=== PATIENT | male | born 1985 | race African-American/Black ===

== ENCOUNTER 2018-03-23 19:43 | Emergency (ER) | payer SELFPAY ==
[~2018-03-23] VITALS: Ht 190.5 cm; Wt 143.7 kg
[~2018-03-23 19:43] MED LIST: IBUP800T19 PO; MUPI1OIN NS; ONDA4TAB10 SL; SULF1TAB24 PO
[2018-03-23 19:56] VITALS: BP 142/93
[2018-03-23] MEDS ORDERED: AMOX500C PO (20:36)
[2018-03-23] MEDS ORDERED: HYDR-971 PO (20:36)
--- NOTE | 2018-03-23 20:36 | PHYS DOC ---
Past History Past Medical History: No Pertinent History, Other Past Surgical History: No Surgical History, Other Smoking: Quit Less Than 1 Year Alcohol Use: Occasionally Drug Use: Marijuana Adult General Chief Complaint Chief Complaint: DENTAL PROBLEM HPI HPI Patient is a 32 year old male who presents with complaint of left-sided dental pain and jaw swelling. Patient states that his symptoms have been present over the past 24 hours. Patient states that he has an impacted wisdom tooth that has been causing trouble off and on. Patient states that he is setting up an appointment to have his wisdom teeth taken out, however he states that due to concern for active infection he came to the emergency department as they will not see him until any infections are resolved. Patient states he's had low- grade fever and took Tylenol prior to arrival. Patient denies any other symptoms currently. Review of Systems Review of Systems Constitutional: Fever[] Eyes: Denies change in visual acuity, redness, or eye pain [] HENT: Dental pain, left jaw swelling[] Respiratory: Denies cough or shortness of breath [] Cardiovascular: Denies chest pain or edema[] GI: Denies abdominal pain, nausea, vomiting, bloody stools or diarrhea [] : Denies dysuria or hematuria [] Musculoskeletal: Denies back pain or joint pain [] Integument: Denies rash or skin lesions [] Neurologic: Denies headache, focal weakness or sensory changes [] All other systems were reviewed and found to be within normal limits, except as documented in this note. Allergies Allergies Allergies Coded Allergies Type Severity Reaction Last Updated Verified No Known Drug Allergies 10/05/13 No Physical Exam Physical Exam Constitutional: Well developed, well nourished, appears in [id number] discomfort. [] HENT: Normocephalic, atraumatic, bilateral external ears normal, oropharynx moist, gingival swelling near site of tooth #17, direct tenderness to palpation , no fluctuance, no oral exudates, nose normal. [] Eyes: PERRLA, EOMI, conjunctiva normal, no discharge. [] Neck: Normal range of motion, no tenderness, supple, no stridor. [] Cardiovascular:Heart rate regular rhythm, no murmur [] Lungs & Thorax: Bilateral breath sounds clear to auscultation [] Abdomen: Bowel sounds normal, soft, no tenderness, no masses, no pulsatile masses. [] Skin: Warm, dry, no erythema, no rash. [] Back: No tenderness, no CVA tenderness. [] Extremities: No tenderness, no cyanosis, no clubbing, ROM intact, no edema. [] Neurologic: Alert and oriented X 3, normal motor function, normal sensory function, no focal deficits noted. [] Current Patient Data Vital Signs Vital Signs Date Time Temp Pulse Resp B/P (MAP) Pulse Ox O2 Delivery O2 Flow Rate FiO2 03/23/18 19:56 99.9 76 18 98 Room Air Lab Results None performed EKG EKG Not performed[] Radiology/Procedures Radiology/Procedures Not performed[] Course & Med Decision Making Course & Med Decision Making Pertinent Labs and Imaging studies reviewed. (See chart for details) Patient started on treatment with amoxicillin in the emergency department. Will continue on 10 day course of treatment. Advised follow-up with a dentist in the next 5-7 days for reevaluation and return to emergency department for any worsening symptoms. Patient was understanding and in agreement with treatment plan. Dragon Disclaimer Dragon Disclaimer This electronic medical record was generated, in whole or in part, using a voice recognition dictation system. Departure Departure: Impression: Primary Impression: Dental infection Disposition: HOME, SELF-CARE Condition: STABLE Referrals: CHAZ ECHEVERRIA MD (PCP) Patient Instructions: Dental Pain Additional Instructions: Follow-up with your dentist in the next 5 days for reevaluation. Return to the emergency department for any worsening symptoms. Scripts Hydrocodone Bit/Acetaminophen (NORCO 5-325 TABLET) 1 Each Tablet 1-2 TAB PO Q4-6HRS PRN for PAIN, #20 TAB Prov: MARIA DOLORES CHAVES MD 03/23/18 Amoxicillin (AMOXICILLIN) 500 Mg Capsule 2 CAP PO BID, #40 CAP Prov: MARIA DOLORES CHAVES MD 03/23/18 MARIA DOLORES CHAVES MD Mar 23, 2018 20:36
[2018-03-23] MEDS ORDERED: IBUPROFEN 600 MG TABLET. PO ONE (20:45)
[2018-03-23] MEDS ORDERED: AMOXICILLIN 250 MG CAPSULE PO ONE (20:45)
== END 2018-03-23 20:44 | disposition home or self-care (01) ==
LOC: ER 19:43
DX: K04.7 Periapical abscess without sinus (principal); Z87.891 Personal history of nicotine dependence
CPT/HCPCS: 99283

== ENCOUNTER 2019-01-20 07:05 | Emergency (ER) | payer SELFPAY ==
[~2019-01-20] VITALS: Ht 190.5 cm; Wt 140.7 kg
[~2019-01-20 07:05] MED LIST changes: +AMOX500C PO; +HYDR-3165 PO
[2019-01-20] MEDS ORDERED: AMOX500T PO (07:31)
[2019-01-20] MEDS ORDERED: MELO7.5T29 PO (07:31)
[2019-01-20] MEDS ORDERED: HYDR-3165 PO (07:31)
--- NOTE | 2019-01-20 07:31 | PHYS DOC ---
Past History Past Medical History: No Pertinent History Past Surgical History: No Surgical History, Other Smoking: Quit Less Than 1 Year Alcohol Use: Occasionally Drug Use: Marijuana Adult General Chief Complaint Chief Complaint: DENTAL PROBLEM HPI HPI Patient is a 33-year-old male presents with left-sided jaw pain and facial swelling that started this morning. Approximately a week ago he broke a tooth on the bottom left side. He is awaiting follow-up with his dentist next Thursday. Patient reports increased sensitivity to cold. The significant pain and swelling again just started this morning. Patient has been trying to keep the area clean. No difficulty swallowing. No fever. Some pain relief with Tylenol and Motrin. Pain is moderate in intensity[] Review of Systems Review of Systems Constitutional: Denies fever or chills [] Eyes: Denies change in visual acuity, redness, or eye pain [] HENT: Denies nasal congestion or sore throat [] Respiratory: Denies cough or shortness of breath [] Cardiovascular: No chest pain or palpitations[] GI: Denies abdominal pain, nausea, vomiting, bloody stools or diarrhea [] : Denies dysuria or hematuria [] Musculoskeletal: Denies back pain or joint pain [] Integument: Denies rash or skin lesions [] Neurologic: Denies headache, focal weakness or sensory changes [] Endocrine: Denies polyuria or polydipsia [] All other systems were reviewed and found to be within normal limits, except as documented in this note. Allergies Allergies Allergies Coded Allergies Type Severity Reaction Last Updated Verified No Known Drug Allergies 01/20/19 No Physical Exam Physical Exam Constitutional: Well developed, well nourished, no acute distress, non-toxic appearance. [] HENT: Normocephalic, atraumatic, bilateral external ears normal, oropharynx moist, no oral exudates, nose normal. Patient's tooth #20 is broken towards the posterior aspect. There is tenderness to percussion. There is some facial swelling. There is no drainable abscess appreciated. Some anterior chain cervical lymphadenopathy is present. No nuchal rigidity. [] Eyes: PERRLA, EOMI, conjunctiva normal, no discharge. [] Neck: Normal range of motion, no tenderness, supple, no stridor. [] Cardiovascular:Heart rate regular rhythm, no murmur [] Lungs & Thorax: Bilateral breath sounds clear to auscultation [] Abdomen: Not examined. [] Skin: Warm, dry, no erythema, no rash. [] Back: No tenderness, no CVA tenderness. [] Extremities: No tenderness, no cyanosis, no clubbing, ROM intact, no edema. [] Neurologic: Alert and oriented X 3, normal motor function, normal sensory function, no focal deficits noted. [] Psychologic: Affect normal, judgement normal, mood normal. [] Current Patient Data Vital Signs Vital Signs Date Time Temp Pulse Resp B/P (MAP) Pulse Ox O2 Delivery O2 Flow Rate FiO2 01/20/19 07:19 98.8 74 18 98 Room Air EKG EKG [] Radiology/Procedures Radiology/Procedures [] Course & Med Decision Making Course & Med Decision Making Pertinent Labs and Imaging studies reviewed. (See chart for details) Patient appears to have a dental infection is result of the broken tooth. There is no evidence of Jayy exam Gen. No evidence of airway compromise. Patient is nontoxic. Will start him on oral antibiotics and have him follow up with his dental appointment.[] Dragon Disclaimer Dragon Disclaimer This electronic medical record was generated, in whole or in part, using a voice recognition dictation system. Departure Departure: Impression: Primary Impression: Dental infection Disposition: HOME, SELF-CARE Condition: IMPROVED Referrals: CHAZ ECHEVERRIA MD (PCP) Follow-up in 2 days Patient Instructions: Dental Abscess Additional Instructions: Keep your dental appointment as scheduled. Take the medication as prescribed. Return to the ER if worsening pain, swelling, fever of more than 101, or any other concerns. Scripts Amoxicillin (AMOXICILLIN) 500 Mg Tablet 1 TAB PO TID for dental infection, #30 TAB Prov: KIARRA WILLARD DO 01/20/19 Hydrocodone Bit/Acetaminophen (NORCO 5-325 TABLET) 1 Each Tablet 1-2 TAB PO Q4-6HRS for severe pain, #20 TAB Prov: KIARRA WILLARD DO 01/20/19 Meloxicam (MELOXICAM) 7.5 Mg Tablet 7.5 MG PO DAILY for PAIN, #20 TAB Prov: KIARRA WILLARD DO 01/20/19 KIARRA WILLARD DO Jan 20, 2019 07:31
[2019-01-20 07:55] VITALS: BP 139/105
[2019-01-20] MEDS ORDERED: AMOXICILLIN 250 MG CAPSULE PO ONE (07:55)
== END 2019-01-20 08:00 | disposition home or self-care (01) ==
LOC: ER 07:05
DX: K04.7 Periapical abscess without sinus (principal); S02.5XXA Fracture of tooth (traumatic), initial encounter for closed fracture; Z87.891 Personal history of nicotine dependence; X58.XXXA Exposure to other specified factors, initial encounter; Y93.89 Activity, other specified; Y92.89 Other specified places as the place of occurrence of the external cause; Y99.8 Other external cause status
CPT/HCPCS: 99283

== ENCOUNTER 2019-06-30 11:22 | Emergency (ER) | payer SELFPAY ==
[~2019-06-30] VITALS: Ht 190.5 cm; Wt 127.0 kg
[~2019-06-30 11:22] MED LIST changes: +AMOX500T PO; +MELO7.5T29 PO
[2019-06-30 11:31] VITALS: BP 133/80
[2019-06-30] MEDS ORDERED: AMOX500T PO (11:41)
[2019-06-30] MEDS ORDERED: HYDR-3165 PO (11:41)
[2019-06-30] MEDS ORDERED: MELO7.5T29 PO (11:41)
--- NOTE | 2019-06-30 11:42 | PHYS DOC ---
Past History Past Medical History: No Pertinent History Past Surgical History: No Surgical History, Other Smoking: Quit Less Than 1 Year Alcohol Use: Occasionally Drug Use: Marijuana Adult General Chief Complaint Chief Complaint: DENTAL PROBLEM HPI HPI Patient is a 34-year-old male presents with left lower dental pain. Patient had in the more remote past broken the bottom left lower molar, over the past week it has become more painful. He noticed a "bubble that blew up, and has been tasting infection." There is increased sensitivity to cold. He has not seen a dentist for this. Symptoms are moderate in intensity. He has noted some knots in his neck. No neck stiffness. No difficulty swallowing or breathing. Subjective fever has been present, no home temperature is been taken. No shaking chills.[] Review of Systems Review of Systems Constitutional: See history of present illness[] Eyes: Denies change in visual acuity, redness, or eye pain [] HENT: Denies nasal congestion or sore throat, see history of present illness [] Respiratory: Denies cough or shortness of breath [] Cardiovascular: No chest pain or palpitations[] GI: Denies abdominal pain, nausea, vomiting, bloody stools or diarrhea [] : Denies dysuria or hematuria [] Musculoskeletal: Denies back pain or joint pain [] Integument: Denies rash or skin lesions [] Neurologic: Denies headache, focal weakness or sensory changes [] Endocrine: Denies polyuria or polydipsia [] All other systems were reviewed and found to be within normal limits, except as documented in this note. Allergies Allergies Allergies Coded Allergies Type Severity Reaction Last Updated Verified No Known Drug Allergies 01/20/19 No Physical Exam Physical Exam Constitutional: Well developed, well nourished, no acute distress, non-toxic appearance. [] HENT: Normocephalic, atraumatic, bilateral external ears normal, oropharynx moist, no oral exudates, tooth #19 has a fracture towards the posterior aspect. There is no drainable abscess appreciated. There is widespread dental disease. No elevation of the floor the mouth. Uvula is midline. Nose normal. [] Eyes: PERRLA, EOMI, conjunctiva normal, no discharge. [] Neck: Normal range of motion, no tenderness, supple, no stridor. No significant cervical lymphadenopathy is present. No meningismus. [] Cardiovascular:Heart rate regular rhythm, no murmur [] Lungs & Thorax: Bilateral breath sounds clear to auscultation [] Abdomen: Not examined. [] Skin: Warm, dry, no erythema, no rash. [] Back: No tenderness, no CVA tenderness. [] Extremities: No tenderness, no cyanosis, no clubbing, ROM intact, no edema. [] Neurologic: Alert and oriented X 3, normal motor function, normal sensory function, no focal deficits noted. [] Psychologic: Affect normal, judgement normal, mood normal. [] EKG EKG [] Radiology/Procedures Radiology/Procedures [] Course & Med Decision Making Course & Med Decision Making Pertinent Labs and Imaging studies reviewed. (See chart for details) ED course: Patient arrived, was placed in bed, and tolerated exam well. Findings were discussed with the patient along with plan. He voiced understanding. All questions were answered. He was discharged in improved condition. Medical decision making: Patient appears to have a dental fracture of tooth #19, do not see any exposed nerve. No drainable abscesses appreciated however will place patient on oral antibiotics. There is no evidence of Jayy angina, no evidence of a deep space tissue infection.[] Dragon Disclaimer Dragon Disclaimer This electronic medical record was generated, in whole or in part, using a voice recognition dictation system. Departure Departure: Impression: Primary Impression: Dental abscess Additional Impression: Tooth fracture Disposition: 01 HOME, SELF-CARE Condition: IMPROVED Referrals: CHAZ ECHEVERRIA MD (PCP) Follow-up in 2 days Patient Instructions: Dental Abscess, Tooth Fracture Additional Instructions: Follow-up with your regular doctor or dentist in 2 days. If you do not have a regular dentist a list of local dental clinics will be provided. Take the medication as prescribed. Return to the ER if worsening pain, fever more than 101�, or any other concerns. Scripts Hydrocodone Bit/Acetaminophen (NORCO 5-325 TABLET) 1 Each Tablet 1 TAB PO Q4-6HRS for severe pain, #20 TAB Prov: KIARRA WILLARD DO 06/30/19 Meloxicam (MELOXICAM) 7.5 Mg Tablet 7.5 MG PO DAILY for PAIN, #20 TAB Prov: KIARRA WILLARD DO 06/30/19 Amoxicillin (AMOXICILLIN) 500 Mg Tablet 500 MG PO TID for dental infection for 10 Days, #30 TAB Prov: KIARRA WILLARD DO 06/30/19 Problem Qualifiers Additional Impression: Tooth fracture Encounter type: initial encounter Fracture type: closed Qualified Codes: S02.5XXA - Fracture of tooth (traumatic), initial encounter for closed fracture KIARRA WILLARD DO Jun 30, 2019 11:42
== END 2019-06-30 11:45 | disposition home or self-care (01) ==
LOC: ER 11:22
DX: S02.5XXA Fracture of tooth (traumatic), initial encounter for closed fracture (principal); K04.7 Periapical abscess without sinus; Z87.891 Personal history of nicotine dependence; X58.XXXA Exposure to other specified factors, initial encounter; Y93.89 Activity, other specified; Y92.89 Other specified places as the place of occurrence of the external cause; Y99.8 Other external cause status
CPT/HCPCS: 99283

== ENCOUNTER 2019-10-29 12:21 | Emergency (ER) | payer SELFPAY ==
[~2019-10-29] VITALS: Ht 190.5 cm; Wt 133.4 kg
[2019-10-29] MEDS ORDERED: cefTRIAXone IM 1 GM VIAL IM ONE (12:45)
[2019-10-29 12:54] VITALS: BP 135/96
--- NOTE | 2019-10-29 13:46 | PHYS DOC ---
Past History Past Medical History: No Pertinent History Past Surgical History: Other Additional Past Surgical Histo: EAR Smoking: Quit Less Than 1 Year Additional Smoking Information: PACK/DAY Alcohol Use: Occasionally Drug Use: Marijuana Adult General Chief Complaint Chief Complaint: FINGER INJURY HPI HPI Patient is a 34-year-old male presenting with left ring finger swelling and pain AFTER BITING HIS FINGERNAIL DOWN TOO MUCH NO FEVER Current Medications Current Medications Current Medications Medications (Trade) Dose Ordered Sig/Avinash Start Time Stop Time Status Last Admin Dose Admin Ceftriaxone Sodium (Rocephin Im) 1 gm 1X ONCE 10/29/19 12:45 10/29/19 12:46 DC 10/29/19 12:54 1 GM Allergies Allergies Allergies Coded Allergies Type Severity Reaction Last Updated Verified No Known Drug Allergies 01/20/19 No Physical Exam Physical Exam Constitutional: Well developed, well nourished, no acute distress, non-toxic appearance. [] HENT: Normocephalic, atraumatic, bilateral external ears normal, oropharynx moist, no oral exudates, nose normal. [] Eyes: PERRLA, EOMI, conjunctiva normal, no discharge. [] Abdomen: Bowel sounds normal, soft, no tenderness, no masses, no pulsatile masses. [] Skin: Warm, dry, no erythema, no rash. [] Back: No tenderness, no CVA tenderness. [] Extremities:fluctuance nailbed affected finger rom intact Neurologic: Alert and oriented X 3, normal motor function, normal sensory function, no focal deficits noted. [] \ Current Patient Data Vital Signs Vital Signs Date Time Temp Pulse Resp B/P (MAP) Pulse Ox O2 Delivery O2 Flow Rate FiO2 10/29/19 12:54 86 20 135/96 (109) 95 Room Air 10/29/19 12:30 97.9 Lab Results Temperature (Fahrenheit): * 97.9 degrees F (97.6-99.5) Patient Temperature * 97.9 degrees F (97.5-99.5) Temperature Source * Oral Blood Pressure Systolic * 130 mm Hg (100-140) Blood Pressure Diastolic * 87 mm Hg (60-100) Blood Pressure Mean * 101 mm Hg Blood Pressure Location * Right Arm Blood Pressure Source * Automatic Cuff Pulse Rate * 89 beats per minute (60-90) Pulse Assessment Metho EKG EKG [] Radiology/Procedures Radiology/Procedures [] Course & Med Decision Making Course & Med Decision Making Pertinent Labs and Imaging studies reviewed. (See chart for details) []PT WAS medically stabilized with i and d and dose of abx. procedure note i and d paronychia verbal consent digital block one percent plain lidocaine pt tolerated well 0.5 cm incision eleven blade large amount of pus returned wrap applied pt toleratd well wound care instructions given Scotty Disclaimer Dragon Disclaimer This electronic medical record was generated, in whole or in part, using a voice recognition dictation system. Departure Departure: Impression: Primary Impression: Charan Disposition: HOME, SELF-CARE Condition: STABLE Patient Instructions: Charan, [id number] KIMBERLY GONZALES MD Oct 29, 2019 13:46
== END 2019-10-29 13:02 | disposition home or self-care (01) ==
LOC: ER 12:21
DX: L03.012 Cellulitis of left finger (principal); Z87.891 Personal history of nicotine dependence
CPT/HCPCS: 10060; 96372; 99283; J0696